=== PATIENT | male | born 1955 | race Caucasian/White ===

== ENCOUNTER 2018-05-12 20:44 | Inpatient (IN) | payer MEDICAID, OTHER ==
[~2018-05-12] VITALS: Ht 180.3 cm; Wt 80.7 kg
[2018-05-12] MEDS ORDERED: CHLORDIAZEPOXIDE HCL 25 MG CAPSULE ONE (21:07)
[2018-05-12] MEDS ORDERED: CHLORDIAZEPOXIDE HCL 25 MG CAPSULE PO ONE (21:15)
[2018-05-12 21:30] LABS: *BILIRUBIN,URIN 1+ (NEGATIVE); *BLOOD, URINE NEGATIVE (NEGATIVE); *CLARITY,URINE CLEAR (CLEAR); *COLOR,URINE AMBER (YELLOW); *KETONES,URINE NEGATIVE (NEGATIVE); *PROTEIN,URINE NEGATIVE (NEGATIVE); *UROBILINOGEN,URINE 0.2 E.U./dl (NORMAL); LEUKOCYTE ESTERASE ,URINE NEGATIVE (NEGATIVE); NITRITE, URINE NEGATIVE (NEGATIVE); PH,URINE 6.5 (5.0-8.0); UGLUCOSE NEGATIVE (NEGATIVE)
[2018-05-12 21:40] LABS: *AMPHETAMINE, URINE NEGATIVE (NEGATIVE); *BARBITURATE, URINE NEGATIVE (NEGATIVE); *CANNABINOID, URINE NEGATIVE (NEGATIVE); *COCCAINE, URINE NEGATIVE (NEGATIVE); *OPIATE, URINE NEGATIVE (NEGATIVE); *PHENCYCLIDINE SCREEN,URINE NEGATIVE (NEGATIVE)
[2018-05-12 21:42] LABS: CARBON DIOXIDE 30 mmol/L (21-32); CHLORIDE 96 mmol/L (98-107); CREATININE 0.9 mg/dL (0.6-1.3); GLUCOSE 115 mg/dL (74-106); POTASSIUM 3.9 mmol/L (3.5-5.1); UREA NITROGEN, BLOOD 5 mg/dL (7-18)
[2018-05-12 21:43] LABS: BASOPHILS # (AUTO) 0.1 K/uL (0.0-8.0); BASOPHILS % (AUTO) 1.4 % (0.0-2.0); EOSINOPHILS % (AUTO) 0.3 % (0.0-7.0); HEMATOCRIT 34.3 % (36.7-47.1); HEMOGLOBIN 11.8 g/dL (12.5-16.3); LYMPHOCYTES % (AUTO) 33.5 % (20.5-51.5); MEAN CORPUSCULAR HEMOGLOBIN 33.8 uug (23.8-33.4); MEAN CORPUSCULAR HGB CONC 34 g/dL (32.5-36.3); MEAN CORPUSCULAR VOLUME 98.7 fL (73.0-96.2); MONOCYTES # (AUTO) 0.7 K/uL (2.0-10.0); MONOCYTES % (AUTO) 7.6 % (0.0-11.0); NEUTROPHILS % (AUTO) 57.2 % (38.5-71.5); PLATELET COUNT (AUTO) 289 K/uL (152-348); RED BLOOD CELL COUNT(AUTO) 3.47 MIL/uL (4.06-5.63); WHITE BLOOD COUNT (AUTO) 8.8 K/uL (3.6-10.2)
[2018-05-12 21:48] LABS: ACETAMINOPHEN < 2.0 ug/mL (10-30); ALANINE AMINOTRANSFERASE 83 U/L (16-63); ALKALINE PHOSPHATASE 402 U/L (50-136); ASPARTATE AMINOTRANSFERASE 169 U/L (15-37); BILIRUBIN,DIRECT 1.7 mg/dL (0.0-0.2); BILIRUBIN,TOTAL 2.7 mg/dL (0.2-1.0); TOTAL PROTEIN, SERUM 6.2 g/dL (6.4-8.2)
[2018-05-12 21:50] LABS: ETHANOL 109 MG/DL (0-0)
[2018-05-12 21:51] LABS: MUCUS,URINE FEW /LPF (0-FEW); SQUAMOUS EPITHELIAL CELL,UR FEW /HPF (NONE SEEN); WBC,URINE 0-3 /HPF (0-3)
[2018-05-12 22:08] LABS: THYROID STIMULATING HORMONE 4.112 mIU/mL (0.358-3.740)
[2018-05-12] MEDS ORDERED: FLUCONAZOLE 100 MG TABLET PO ONE (22:30)
[2018-05-12] MEDS ORDERED: FLUCONAZOLE 100 MG TABLET ONE (22:37)
[2018-05-12 23:23] VITALS: BP 119/67
[2018-05-12] MEDS ORDERED: MAG HYDROX/AL HYDROX/SIMETH 30 ML LIQUID UDC PO PRN (23:45)
[2018-05-12] MEDS ORDERED: ONDANSETRON ODT 4 MG TAB.RAPDIS SL PRN (23:45)
[2018-05-12] MEDS ORDERED: LORAZEPAM 2 MG/1 ML VIAL IM PRN (23:45)
[2018-05-12] MEDS ORDERED: ONDANSETRON 4 MG/2 ML VIAL IM PRN (23:45)
[2018-05-12] MEDS ORDERED: MAGNESIUM HYDROXIDE 30 ML LIQUID UDC PO PRN (23:45)
[2018-05-12] MEDS ORDERED: ACETAMINOPHEN 325 MG TABLET PO PRN (23:45)
[2018-05-12] MEDS ORDERED: LOPERAMIDE HCL 2 MG CAPSULE PO PRN ×2 (23:45)
[2018-05-12] MEDS ORDERED: LORAZEPAM 1 MG TABLET PO PRN (23:45)
[2018-05-12] MEDS ORDERED: MIRALAX 17 GM POWD.PACK PO PRN (23:45)
[2018-05-12] MEDS ORDERED: DICYCLOMINE HCL 20 MG TABLET PO PRN (23:45)
[2018-05-13] VITALS: BP 119/67
[2018-05-13] MEDS ORDERED: THIAMINE HCL 200 MG/2 ML VIAL IM ONE (00:15)
[2018-05-13] MEDS: diphenhydrAMINE 50 MG CAPSULE PO PRN ×2 (00:30→20:26)
[2018-05-13] MEDS: LORAZEPAM 1 MG TABLET PO PRN ×3 (00:30→11:22)
[2018-05-13 00:32] LABS: *AMPHETAMINE, URINE NEGATIVE (NEGATIVE); *BARBITURATE, URINE NEGATIVE (NEGATIVE); *CANNABINOID, URINE NEGATIVE (NEGATIVE); *COCCAINE, URINE NEGATIVE (NEGATIVE); *OPIATE, URINE NEGATIVE (NEGATIVE); *PHENCYCLIDINE SCREEN,URINE NEGATIVE (NEGATIVE)
[2018-05-13 01:40] LABS: BILIRUBIN,TOTAL 2.9 mg/dL (0.2-1.0); CREATININE 0.8 mg/dL (0.6-1.3); MAGNESIUM 1.5 mg/dL (1.8-2.4); POTASSIUM 3.6 mmol/L (3.5-5.1); TOTAL PROTEIN, SERUM 6.1 g/dL (6.4-8.2)
[2018-05-13 01:50] LABS: THYROID STIMULATING HORMONE 4.86 mIU/mL (0.358-3.740)
[2018-05-13 02:27] LABS: BASOPHILS # (AUTO) 0.1 K/uL (0.0-8.0); BASOPHILS % (AUTO) 1.1 % (0.0-2.0); EOSINOPHILS % (AUTO) 0.4 % (0.0-7.0); HEMATOCRIT 34.5 % (36.7-47.1); HEMOGLOBIN 11.7 g/dL (12.5-16.3); LYMPHOCYTES # (AUTO) 2.5 K/uL (20.0-40.0); LYMPHOCYTES % (AUTO) 26.4 % (20.5-51.5); MEAN CORPUSCULAR HEMOGLOBIN 33.4 uug (23.8-33.4); MEAN CORPUSCULAR HGB CONC 34 g/dL (32.5-36.3); MEAN CORPUSCULAR VOLUME 98.4 fL (73.0-96.2); MONOCYTES # (AUTO) 0.8 K/uL (2.0-10.0); MONOCYTES % (AUTO) 8.4 % (0.0-11.0); NEUTROPHILS % (AUTO) 63.7 % (38.5-71.5); PLATELET COUNT (AUTO) 289 K/uL (152-348); WHITE BLOOD COUNT (AUTO) 9.4 K/uL (3.6-10.2)
[2018-05-13 08:00] VITALS: BP 109/62
[2018-05-13] MEDS ORDERED: MAGNESIUM OXIDE 400 MG TABLET PO ONE (09:00)
[2018-05-13] MEDS ORDERED: TUBERCULIN,PURIF.PROT.DERIV. 5 TU/0.1 ML TEST ID ONE (09:00)
[2018-05-13] MEDS: MULTIVITAMINS,THERAPEUTIC TABLET PO SCH (09:12)
[2018-05-13] MEDS: THIAMINE HCL 100 MG TABLET PO SCH (09:12)
[2018-05-13] MEDS: FOLIC ACID 1 MG TABLET PO SCH (09:12)
[2018-05-13] MEDS ORDERED: AMLO10TA6 PO (11:15)
[2018-05-13 12:00] VITALS: BP 135/75
[2018-05-13] MEDS: AMLODIPINE 10 MG TABLET PO SCH (13:43)
[2018-05-13] MEDS: CLOTRIMAZOLE 1% CREAM 30 GM TUBE TOP SCH ×2 (13:44→16:37)
[2018-05-13] MEDS ORDERED: 5 DAY TAPER OF LORAZEPAM -SERENITY PROTOCOL PO PRN (14:00)
[2018-05-13] MEDS: LORAZEPAM 1 MG TABLET PO SCH ×3 (14:17→20:26)
[2018-05-13] MEDS: NICOTINE 21 MG/24HR PATCH TD SCH (14:17)
[2018-05-13 16:00] VITALS: BP 112/68
[2018-05-13 20:04] VITALS: BP 121/62
[2018-05-14 08:08] VITALS: BP 132/80
[2018-05-14] MEDS: MULTIVITAMINS,THERAPEUTIC TABLET PO SCH (08:59)
[2018-05-14] MEDS: LORAZEPAM 1 MG TABLET PO SCH ×4 (08:59→20:13)
[2018-05-14] MEDS: AMLODIPINE 10 MG TABLET PO SCH (09:00)
[2018-05-14] MEDS: FOLIC ACID 1 MG TABLET PO SCH (09:00)
[2018-05-14] MEDS: THIAMINE HCL 100 MG TABLET PO SCH (09:00)
[2018-05-14 09:11] LABS: HEPATITIS B SURFACE AG Negative (Negative)
[2018-05-14] MEDS ORDERED: MAGNESIUM OXIDE 400 MG TABLET PO ONE ×2 (09:15→11:15)
[2018-05-14] MEDS: NICOTINE 21 MG/24HR PATCH TD SCH (09:46)
[2018-05-14] MEDS: HYDROXYZINE PAMOATE 25 MG CAPSULE PO PRN ×2 (09:46→16:40)
[2018-05-14] MEDS: CLOTRIMAZOLE 1% CREAM 30 GM TUBE TOP SCH ×2 (09:46→17:02)
[2018-05-14 10:49] LABS: BILIRUBIN,TOTAL 3.7 mg/dL (0.2-1.0); CREATININE 1.5 mg/dL (0.6-1.3); MAGNESIUM 1.6 mg/dL (1.8-2.4); POTASSIUM 3.7 mmol/L (3.5-5.1); TOTAL PROTEIN, SERUM 6.7 g/dL (6.4-8.2)
[2018-05-14 11:00] LABS: HEMATOCRIT 37.6 % (36.7-47.1); HEMOGLOBIN 12.7 g/dL (12.5-16.3); MEAN CORPUSCULAR HGB CONC 34 g/dL (32.5-36.3); MEAN CORPUSCULAR VOLUME 100.9 fL (73.0-96.2); PLATELET COUNT (AUTO) 300 K/uL (152-348); RED BLOOD CELL COUNT(AUTO) 3.72 MIL/uL (4.06-5.63); WHITE BLOOD COUNT (AUTO) 8.7 K/uL (3.6-10.2)
[2018-05-14 11:17] LABS: EOSINOPHILS % (AUTO) 0.2 % (0.0-7.0); LYMPHOCYTES % (AUTO) 28.6 % (20.5-51.5); MONOCYTES % (AUTO) 6.2 % (0.0-11.0); NEUTROPHILS % (AUTO) 63.7 % (38.5-71.5)
[2018-05-14 11:18] LABS: BASOPHILS # (AUTO) 0.1 K/uL (0.0-8.0); BASOPHILS % (AUTO) 1.3 % (0.0-2.0); LYMPHOCYTES # (AUTO) 2.5 K/uL (20.0-40.0); MONOCYTES # (AUTO) 0.5 K/uL (2.0-10.0); NEUTROPHILS # (AUTO) 5.6 K/uL (1.8-8.9)
[2018-05-14] MEDS: NICOTINE POLACRILEX 4 MG GUM-PK OF TEN BC PRN (12:10)
[2018-05-14 12:17] VITALS: BP 120/76
[2018-05-14] MEDS ORDERED: LORAZEPAM 1 MG TABLET PO ONE (13:00)
[2018-05-14] MEDS: IBUPROFEN 600 MG TABLET PO PRN ×2 (14:24→20:14)
[2018-05-14 16:45] VITALS: BP 112/64
[2018-05-14] MEDS ORDERED: LORAZEPAM 1 MG TABLET PO PRN ×2 (18:00)
[2018-05-14] MEDS: GABAPENTIN 300 MG CAPSULE PO SCH (18:16)
[2018-05-14 20:00] VITALS: BP 110/64
[2018-05-15 07:56] LABS: BILIRUBIN,TOTAL 2.3 mg/dL (0.2-1.0); CREATININE 0.8 mg/dL (0.6-1.3); MAGNESIUM 2.1 mg/dL (1.8-2.4); POTASSIUM 3.5 mmol/L (3.5-5.1); TOTAL PROTEIN, SERUM 5.7 g/dL (6.4-8.2)
[2018-05-15 08:05] VITALS: BP 114/68
[2018-05-15 08:13] LABS: BASOPHILS # (AUTO) 0.1 K/uL (0.0-8.0); BASOPHILS % (AUTO) 1.1 % (0.0-2.0); EOSINOPHILS # (AUTO) 0.1 K/uL (0.0-0.7); EOSINOPHILS % (AUTO) 0.8 % (0.0-7.0); LYMPHOCYTES # (AUTO) 1.9 K/uL (20.0-40.0); LYMPHOCYTES % (AUTO) 27.9 % (20.5-51.5); MEAN CORPUSCULAR HEMOGLOBIN 33.9 uug (23.8-33.4); MEAN CORPUSCULAR HGB CONC 33 g/dL (32.5-36.3); MONOCYTES # (AUTO) 0.5 K/uL (2.0-10.0); MONOCYTES % (AUTO) 7.8 % (0.0-11.0); NEUTROPHILS # (AUTO) 4.1 K/uL (1.8-8.9); NEUTROPHILS % (AUTO) 62.4 % (38.5-71.5); PLATELET COUNT (AUTO) 241 K/uL (152-348); RED BLOOD CELL COUNT(AUTO) 3.26 MIL/uL (4.06-5.63); WHITE BLOOD COUNT (AUTO) 6.6 K/uL (3.6-10.2)
[2018-05-15 08:14] LABS: HEMATOCRIT 33.6 % (36.7-47.1); HEMOGLOBIN 11.1 g/dL (12.5-16.3); MEAN CORPUSCULAR VOLUME 103.1 fL (73.0-96.2)
[2018-05-15] MEDS: MULTIVITAMINS,THERAPEUTIC TABLET PO SCH (08:46)
[2018-05-15] MEDS: THIAMINE HCL 100 MG TABLET PO SCH (08:46)
[2018-05-15] MEDS: GABAPENTIN 300 MG CAPSULE PO SCH ×3 (08:46→16:39)
[2018-05-15] MEDS: LORAZEPAM 1 MG TABLET PO SCH ×3 (08:46→20:20)
[2018-05-15] MEDS: FOLIC ACID 1 MG TABLET PO SCH (08:46)
[2018-05-15] MEDS: AMLODIPINE 10 MG TABLET PO SCH (08:47)
[2018-05-15] MEDS: CLOTRIMAZOLE 1% CREAM 30 GM TUBE TOP SCH ×2 (08:47→16:39)
[2018-05-15] MEDS: NICOTINE 21 MG/24HR PATCH TD SCH (08:52)
[2018-05-15 12:00] VITALS: BP 108/68
[2018-05-15] MEDS: NICOTINE POLACRILEX 4 MG GUM-PK OF TEN BC PRN (15:13)
[2018-05-15 16:30] VITALS: BP 121/71
[2018-05-15 20:00] VITALS: BP 100/78
[2018-05-15] MEDS: diphenhydrAMINE 50 MG CAPSULE PO PRN (20:20)
[2018-05-16 08:00] VITALS: BP 116/63
[2018-05-16] MEDS: FOLIC ACID 1 MG TABLET PO SCH (08:33)
[2018-05-16] MEDS: MULTIVITAMINS,THERAPEUTIC TABLET PO SCH (08:33)
[2018-05-16] MEDS: GABAPENTIN 300 MG CAPSULE PO SCH ×3 (08:33→17:58)
[2018-05-16] MEDS: LORAZEPAM 1 MG TABLET PO SCH ×2 (08:33→20:36)
[2018-05-16] MEDS: AMLODIPINE 10 MG TABLET PO SCH (08:33)
[2018-05-16] MEDS: THIAMINE HCL 100 MG TABLET PO SCH (08:33)
[2018-05-16] MEDS: CLOTRIMAZOLE 1% CREAM 30 GM TUBE TOP SCH ×2 (08:34→17:59)
[2018-05-16] MEDS: NICOTINE 21 MG/24HR PATCH TD SCH (08:35)
[2018-05-16 08:44] LABS: BILIRUBIN,TOTAL 1.9 mg/dL (0.2-1.0); CREATININE 0.8 mg/dL (0.6-1.3); MAGNESIUM 1.8 mg/dL (1.8-2.4); POTASSIUM 3.5 mmol/L (3.5-5.1); TOTAL PROTEIN, SERUM 5.7 g/dL (6.4-8.2)
[2018-05-16 09:00] LABS: THYROID STIMULATING HORMONE 3.087 mIU/mL (0.358-3.740)
[2018-05-16 12:00] VITALS: BP 141/75
[2018-05-16] MEDS: NICOTINE POLACRILEX 4 MG GUM-PK OF TEN BC PRN (12:10)
[2018-05-16] MEDS: HYDROXYZINE PAMOATE 25 MG CAPSULE PO PRN ×2 (12:43→20:42)
[2018-05-16] MEDS: IBUPROFEN 600 MG TABLET PO PRN (12:43)
[2018-05-16] MEDS ORDERED: HYDROXYZINE PAMOATE 25 MG CAPSULE PO ONE (15:00)
[2018-05-16 16:00] VITALS: BP 119/69
[2018-05-16 20:00] VITALS: BP 113/71
[2018-05-16] MEDS: diphenhydrAMINE 50 MG CAPSULE PO PRN (20:36)
[2018-05-17] VITALS: BP 108/79
[2018-05-17 04:00] VITALS: BP 114/72
[2018-05-17 08:00] VITALS: BP 125/78
[2018-05-17 08:00] LABS: BILIRUBIN,TOTAL 1.7 mg/dL (0.2-1.0); CREATININE 0.8 mg/dL (0.6-1.3); POTASSIUM 3.5 mmol/L (3.5-5.1); TOTAL PROTEIN, SERUM 5.9 g/dL (6.4-8.2)
[2018-05-17] MEDS: FOLIC ACID 1 MG TABLET PO SCH (08:52)
[2018-05-17] MEDS: GABAPENTIN 300 MG CAPSULE PO SCH ×3 (08:52→16:56)
[2018-05-17] MEDS: NICOTINE 21 MG/24HR PATCH TD SCH (08:52)
[2018-05-17] MEDS: THIAMINE HCL 100 MG TABLET PO SCH (08:52)
[2018-05-17] MEDS: MULTIVITAMINS,THERAPEUTIC TABLET PO SCH (08:52)
[2018-05-17] MEDS: AMLODIPINE 10 MG TABLET PO SCH (08:52)
[2018-05-17] MEDS: CLOTRIMAZOLE 1% CREAM 30 GM TUBE TOP SCH ×2 (08:53→16:56)
[2018-05-17] MEDS ORDERED: LORAZEPAM 1 MG TABLET PO SCH (09:00)
[2018-05-17] MEDS: HYDROXYZINE PAMOATE 25 MG CAPSULE PO PRN ×2 (10:32→21:11)
[2018-05-17 12:00] VITALS: BP 128/73
[2018-05-17] MEDS ORDERED: DIPH50CA37 PO (13:45)
[2018-05-17] MEDS ORDERED: CLOT30CR24 TOP (13:45)
[2018-05-17] MEDS ORDERED: GABA-534 PO (13:45)
[2018-05-17] MEDS ORDERED: HYDR-3895 PO (13:45)
[2018-05-17] MEDS ORDERED: AMLO10TA6 PO (13:45)
[2018-05-17 16:30] VITALS: BP 122/76
[2018-05-17] MEDS: NICOTINE POLACRILEX 4 MG GUM-PK OF TEN BC PRN ×2 (18:44→21:11)
[2018-05-17 20:00] VITALS: BP 128/64
[2018-05-17] MEDS: diphenhydrAMINE 50 MG CAPSULE PO PRN (21:11)
[2018-05-18] VITALS: BP 105/65
[2018-05-18 04:00] VITALS: BP_SYST 110; BP_SYST 116; BP_DIAS 66; BP_DIAS 67
[2018-05-18 06:30] VITALS: BP 110/66
== END 2018-05-18 07:25 | disposition home or self-care (01) | DRG 772 ==
LOC: ER 20:45 → SRC 22:56
PROVIDERS: ADMIT Family Medicine Addiction Medicine; ATTEND Family Medicine Addiction Medicine
PROC: HZ2ZZZZ Detoxification Services for Substance Abuse Treatment (ICD-10-PCS; principal; 2018-05-12)
PROC: HZ31ZZZ Individual Counseling for Substance Abuse Treatment, Behavioral (ICD-10-PCS; 2018-05-14)
PROC: 0HBRXZZ Excision of Toe Nail, External Approach (ICD-10-PCS; 2018-05-15)
PROC: HZ41ZZZ Group Counseling for Substance Abuse Treatment, Behavioral (ICD-10-PCS; 2018-05-15)
DX: F10.230 Alcohol dependence with withdrawal, uncomplicated (principal); E83.42 Hypomagnesemia; K70.31 Alcoholic cirrhosis of liver with ascites; K70.11 Alcoholic hepatitis with ascites; B35.1 Tinea unguium; D63.8 Anemia in other chronic diseases classified elsewhere; B35.3 Tinea pedis; D53.9 Nutritional anemia, unspecified; E80.7 Disorder of bilirubin metabolism, unspecified; F17.210 Nicotine dependence, cigarettes, uncomplicated; F41.1 Generalized anxiety disorder; K25.9 Gastric ulcer, unspecified as acute or chronic, without hemorrhage or perforation; Y90.1 Blood alcohol level of 20-39 mg/100 ml; L60.2 Onychogryphosis; R60.0 Localized edema; I10 Essential (primary) hypertension; F32.9 Major depressive disorder, single episode, unspecified; R94.6 Abnormal results of thyroid function studies
CPT/HCPCS: 36415; 70030-TC; 76705; 80307; 82105; 83550; 83690; 83735; 84443; 85025; 85610; 86592; 86705; 86803; 87340; 87806; 93005; 93307; G0480; G0480-TC; J3411; Q0163

== ENCOUNTER 2018-08-19 10:46 | Emergency (ER) | payer MEDICAID, OTHER ==
[~2018-08-19] VITALS: Ht 175.3 cm; Wt 79.4 kg
[~2018-08-19 10:46] MED LIST: AMLO10TA7 PO; LORA-258 PO
--- NOTE | 2018-08-19 11:06 | NUR ---
PATIENT WAS SEEN BY DR FLYNN. DC, RX (INCLUDING PRECAUTIONS) GIVEN AND EXPLAINED TO PATIENT AND FAMILY WHO STATE THEY UNDERSTAND ALL INSTRUCTIONS.
== END 2018-08-19 11:08 | disposition home or self-care (01) ==
LOC: ER 10:46
DX: I87.2 Venous insufficiency (chronic) (peripheral) (principal); R60.9 Edema, unspecified; I10 Essential (primary) hypertension; F17.210 Nicotine dependence, cigarettes, uncomplicated; Z79.899 Other long term (current) drug therapy
CPT/HCPCS: A4663

== ENCOUNTER 2021-03-05 14:41 | Emergency (ER) | payer OTHER ==
[~2021-03-05] VITALS: Ht 175.3 cm; Wt 75.7 kg
[~2021-03-05 14:41] MED LIST changes: +AMLO10TA59 PO; -AMLO10TA7 PO
--- NOTE | 2021-03-05 14:44 | NUR ---
at bedside for assessment
--- NOTE | 2021-03-05 15:00 | NUR ---
Patient states he has been noticing bloody/ loose stool
[2021-03-05] MEDS ORDERED: ASPI81TA31 PO (15:09)
[2021-03-05] MEDS ORDERED: VALS1TAB PO (15:09)
[2021-03-05] MEDS ORDERED: LORA2ORA5 PO (15:09)
[2021-03-05] MEDS ORDERED: PANTOPRAZOLE SODIUM 40 MG VIAL ONE (15:42)
[2021-03-05] MEDS: PANTOPRAZOLE SODIUM 40 MG VIAL IV ONE (15:58)
[2021-03-05] MEDS: IV NORMAL SALINE 500 ML BAG IV ONE (15:58)
[2021-03-05 16:07] LABS: HEMATOCRIT 30.5 % (36.7-47.1); MEAN CORPUSCULAR HEMOGLOBIN 29.4 uug (23.8-33.4); MEAN CORPUSCULAR VOLUME 85.9 fL (73.0-96.2); PLATELET COUNT (AUTO) 190 K/uL (152-348)
[2021-03-05 16:10] LABS: CREATININE 1.6 mg/dL (0.6-1.3); POTASSIUM 3.6 mmol/L (3.5-5.1)
[2021-03-05 16:16] LABS: BILIRUBIN,DIRECT 0.2 mg/dL (0.0-0.2); BILIRUBIN,TOTAL 0.5 mg/dL (0.2-1.0); TOTAL PROTEIN, SERUM 6.3 g/dL (6.4-8.2)
[2021-03-05] MEDS: LORAZEPAM 2 MG/1 ML VIAL IV ONE (16:23)
[2021-03-05] MEDS ORDERED: LORAZEPAM 2 MG/1 ML VIAL ONE (16:26)
--- NOTE | 2021-03-05 16:30 | NUR ---
Patient taken down to radiology department for CT
[2021-03-05] MEDS ORDERED: DIATR MEGLU/DIATRIZOATE SODIUM 30 ML BOTTLE ONE ×2 (16:59→17:54)
[2021-03-05] MEDS: PIPERACILLIN SODIUM/TAZOBACTAM 3.375 G in IV DEXTROSE 5% 50 ML IV ONE (17:18)
[2021-03-05] MEDS ORDERED: PIPERACILLIN/TAZOBACTAM/D5W 50 ML IV ONE (17:22)
--- NOTE | 2021-03-05 17:30 | NUR ---
Patient taken for repeat CT with oral contrast
--- NOTE | 2021-03-05 17:40 | NUR ---
[employer] called regarding clinicals, awaiting returned call
[2021-03-05 18:40] LABS: *OCCULT BLOOD STOOL POSITIVE (NEGATIVE)
--- NOTE | 2021-03-05 19:24 | NUR ---
Doctor to doctor call done between [place] and [facility]. Patient will be going to: [facility] -Admitting doctor will be [place]. -Pending call back for bed. -Pending call back for phone number to give report. -Ambulance will be set up by insurance, [facility] will call back with information.
--- NOTE | 2021-03-05 19:47 | NUR ---
Patient is resting comfortably in bed, on cellphone, no acute distress noted. Will continue to monitor.
--- NOTE | 2021-03-05 19:54 | NUR ---
Patient requested to use the restroom, assisted out of bed, walks with a steady gait.
[2021-03-05] MEDS: LORAZEPAM 0.5 MG TABLET PO ONE (22:30)
[2021-03-05] MEDS ORDERED: LORAZEPAM 1 MG TABLET ONE (22:38)
--- NOTE | 2021-03-06 01:00 | NUR ---
[facility] contacted, still awaiting call back.
[2021-03-06] MEDS: LORAZEPAM 0.5 MG TABLET PO ONE (02:43)
[2021-03-06] MEDS ORDERED: LORAZEPAM 1 MG TABLET ONE (02:48)
--- NOTE | 2021-03-06 03:23 | NUR ---
Patient is resting comfortably in bed with eyes closed, no acute distress noted.
--- NOTE | 2021-03-06 04:18 | NUR ---
Checking up with insurance again for information regarding patient's room and number to give report to. Still waiting for call back.
--- NOTE | 2021-03-06 05:50 | NUR ---
Patient does not wish to proceed with medical care recommended by Dr. Owusu. Patient given information related to possible complications, up to and including , which could occur as a result of leaving the hospital at this time. Patient verbalizes understanding of risks involved due to leaving against medical advice. Patient has signed AMA form. Patient was given copies of labs and diagnostic imaging interpretations done today. IV line removed. Patient ambulates with steady gait, V/S stable, and left with all personal belongings.
[2021-03-06 05:53] VITALS: BP 120/62
== END 2021-03-06 05:50 | disposition left against medical advice (07) ==
LOC: ER 14:42
DX: K57.13 Diverticulitis of small intestine without perforation or abscess with bleeding (principal); D64.9 Anemia, unspecified; R91.8 Other nonspecific abnormal finding of lung field; N28.9 Disorder of kidney and ureter, unspecified; K80.70 Calculus of gallbladder and bile duct without cholecystitis without obstruction; Z20.822 Contact with and (suspected) exposure to COVID-19; F41.9 Anxiety disorder, unspecified; I10 Essential (primary) hypertension; Z79.82 Long term (current) use of aspirin; Z79.899 Other long term (current) drug therapy; Z82.49 Family history of ischemic heart disease and other diseases of the circulatory system; J98.11 Atelectasis; Z87.11 Personal history of peptic ulcer disease; I45.10 Unspecified right bundle-branch block; R94.31 Abnormal electrocardiogram [ECG] [EKG]; F10.11 Alcohol abuse, in remission
CPT/HCPCS: 36415; 71045; 74176 ×2; 80048; 80076; 82270; 84484; 85018; 85025; 85730; 86850; 86900; 86901; 87426; 93005; 96361; 96365; 96375; 99285; C9113; J2060; J2543; 70030-TC; A4663; J7030; Q9963